=== PATIENT | female | born 1975 | race Two or more races ===

== ENCOUNTER → 2016-05-14 | Outpatient (REF) | payer OTHER, BC | LOC: M SMT 15:05 | PROVIDERS: ATTEND Nurse Practitioner Women's Health | DX: R31.9 Hematuria, unspecified (principal) ==

== ENCOUNTER → 2016-05-23 | Outpatient (CLI) | payer BC ==
[~2016-05-23] MED LIST: ISOVUE-370 76% 100ML VIAL (Q9967) As Ordered ONE
--- NOTE | 2016-05-23 09:10 | REP ---
Clinical: Hematuria. Technique: Axial precontrast, contrast enhanced, and delayed images of the abdomen and pelvis using 100 ml Isovue 370 intravenous contrast material with coronal and sagittal re-formations and CT MIP urograms. Findings: Evaluation of the urinary tract system is essentially normal. There is no nephrolithiasis, hydroureteronephrosis, perinephric stranding, or mass lesion. A solitary 1.5 cm cyst is identified in the left kidney along with smaller subcentimeter cyst. Liver, spleen, pancreas, and bilateral adrenal glands are normal. The patient is status post cholecystectomy. The enteric system is without obstruction or acute inflammatory process. Pelvis demonstrates normal bladder and age-appropriate uterus/adnexa with IUD in satisfactory position. No pelvic fluid or ascites. No free air. No adenopathy. Vasculature is normal. Surrounding musculoskeletal structures are normal. Lung bases are clear. Impression: 1. Subcentimeter and 1.5 cm simple left renal cysts. The urinary tract system is otherwise unremarkable. 2. No acute intra-abdominal or pelvic pathology appreciated. Signed by Cecil Chapman MD 05/23/2016 09:02 A
== END ==
LOC: M RAD 07:55
PROVIDERS: ATTEND Nurse Practitioner Women's Health
DX: R31.9 Hematuria, unspecified (principal); N28.1 Cyst of kidney, acquired
CPT/HCPCS: 74178; Q9967

== ENCOUNTER → 2016-10-14 | Outpatient (REF) | payer BC | LOC: M SMT 17:29 | PROVIDERS: ATTEND Urology | DX: R31.9 Hematuria, unspecified (principal) ==

== ENCOUNTER → 2018-09-09 | Outpatient (REF) | payer BC ==
[2018-09-15 14:41] LABS: HPV HYBRID CAPTURE II Negative (Negative)
== END ==
LOC: M LAB LCGH 12:10
PROVIDERS: ATTEND Obstetrics & Gynecology
DX: Z12.4 Encounter for screening for malignant neoplasm of cervix (principal)